=== PATIENT | male | born 1950 | race Caucasian/White ===

== ENCOUNTER → 2019-06-27 | Outpatient (CLI) | payer OTHER ==
--- NOTE | 2019-07-17 00:52 | PFR/MVV ---
[facility] [place] [address] PULMONARY FUNCTION MVV/REPORT Name: SHELTON RALPH Room #: REG EDIN Oropeza.#: [id number] Admission: 06/27/19 Attend Phys: Vasyl Pineda MD Discharge: Date of : 48 Report #: [id number] THIS REPORT FOR: //name// COPIES FOR: AGE: 68 SEX/RACE: M/C >> SPIROMETRY: (BTPS) Height: 71 in cm Weight: 214 lbs kg Exam Date: 06/27/19 PRE-RX POST-RX PRED BEST %PRED BEST %PRED %CHG FVC LITERS . 4.54 . 4.52 . 100 . 4.52 . 100 . 0 FEV1 LITERS . 3.06 . 2.88 . 94 . 3.11 . 101 . 8 FEV1/FVC % . 68 . 64 . 93 . 69 . 101 . 8 OUN68-60% L/Sec . 2.75 . 1.31 . 48 . 1.83 . 67 . 39 PEF L/SEC . 8354 . 9.07 . 106 . 8.39 . 98 . -8 FEF50/FIF50 UNITLESS . . 0.85 . . 0.74 . . -12 MVV L/Min . 132 . 114 . 86 f 1/Min . . 150 . >> LUNG VOLUMES: (BTPS) PRE-RX POST-RX PRED AVG %PRED AVG %PRED %CHG VC Liters . 4.54 . 4.52 . 100 . . . TLC Liters . 6.76 . 6.87 . 102 . . . RV Liters . 2.59 . 2.35 . 91 . . . RV/TLC % . 40 . 34 . 85 . . . FRC PL Liters . 3.63 . 4.08 . 112 . . . FRC N2 Liters . . . . . . ERV Liters . 1.54 . 1.73 . 112 . . . IC Liters . 3.08 . 2.84 . 92 . . . >> DIFFUSION: DLCO ml/Min/mmHg . 24.0 . 19.0 . 79 . . . DL [place] ml/Min/mmHg . 24.0 . 19.0 . 79 . . . DLCO/VA ml/Min/mmHg . 3.58 . 3.41 . 95 . . . VA Liters . 7.30 . 5.57 . 76 . . . [facility] [address] [place] [address] PULMONARY FUNCTION MVV/REPORT Name: SHELTON RALPH Room #: REG [facility].#: [id number] Admission: 06/27/19 Attend Phys: Vasyl Pineda MD Discharge: Date of : 48 Report #: [id number] COMMENTS: COMMENTS: >> RESISTANCE: PRE-RX PRED AVG %PRED Raw Total cmH20/L/Sec . . 6.06 . Raw Insp cmH20/L/Sec . . 2.05 . Raw Exp cmH20/L/Sec . . 2.71 . Raw cmH20/L/Sec . 1.23 . 2.66 . 216 Gaw L/Sec/cmH20 . 0.872 . 0.376 . 43 sRaw cmH20 Sec . 4.47 . 12.66 . 283 sGaw l/cmH20 Sec . 0.224 . 0.079 . 35 Vtq Liters . . 4.76 . # = OUTSIDE 95% CONFIDENCE INTERVAL CALIBRATION: PRED: 3.00 ACTUAL: EXP 3.01 INSP 3.02 [facility]-OL10 [facility]- [id number] >> INTERPRETATION/IMPRESSION: CC: Vasyl Pineda DATE OF SERVICE: 06/27/2019 SPIROMETRY: FEV1 is 2.88 liters (94%), FVC is 4.52 liters (100%). FEV1/FVC ratio is 64%. Postbronchodilator therapy with no significant change. Total lung capacity 6.87 liters (102%). RV is 2.35 liters (91%). DLCO is 79%. IMPRESSION: Pulmonary function studies are consistent with a mild obstructive airflow defect, with no significant response to bronchodilator therapy. <ELECTRONICALLY SIGNED> By: Alber Doan MD 07/17/19 0052 Alber Doan MD /nt
== END ==
LOC: RAD 09:34
DX: R06.02 Shortness of breath (principal)